=== PATIENT | female | born 1980 | race Caucasian/White ===

== ENCOUNTER 2016-04-05 06:03 | Emergency (ER) | payer OTHER ==
[~2016-04-05] VITALS: Ht 172.7 cm; Wt 82.0 kg
[~2016-04-05 06:03] MED LIST: ACYCLOVIR400 MG; ACYCLOVIR400 MG PO; BUPROPION HCL75 MG PO; BUSPAR15 MG PO; CLARITIN10 M3 PO; CLEOCIN300 MG PO; CLONIDINE HCL0.1 MG PO; ENDOCET 5-3251 EACH PO; FLEXERIL10 MG PO; FLOVENT 11120 INHALA IH; GABAPENTIN300 MG PO; GEODON20 MG; HYDROXYZINE HCL25 MG PO; INDOCIN25 MG PO; KEFLEX500 MG; LAMICTAL100 MG PO; LANTUS 10100 UNITS/ SC; LIDOCAINE20 MG/1 M5 PO; LISINOPRIL20 MG PO; MACROBID100 MG PO; MEDROL DOSEPAK4 MG PO; METFORMIN HCL500 MG PO; MILK THISTLE500 MG PO; MOTRIN800 MG PO; NAPROSYN500 MG PO; NORCO 5/3251 TABLET PO; NOVOLOG 10100 UNITS/ IV; NOVOLOG 10100 UNITS/ SC; OMEPRAZOLE40 M1 PO; OXAYDO5 MG PO; PAXIL CR37.5 MG PO; PAXIL30 MG PO; PERCOCET 5/31 TABLET PO; PRENATAL TABLE1 EACH PO; PROAIR HFA8.5 GM; PROAIR HFA8.5 GM IH; PROMETHAZINE HC25 M1 PO; RANITIDINE HCL150 M1 PO; RANITIDINE HCL300 MG PO; ROPINIROLE HCL0.5 MG PO; SIMVASTATIN20 MG PO; TRAMADOL HCL50 MG PO; VALIUM10 MG PO; VALIUM5 MG PO; ZANTAC150 MG PO; ZOCOR20 MG PO; ZOFRAN ODT4 MG PO; ZOLOFT50 MG PO; ZOVIRAX400 MG
[2016-04-05] MEDS ORDERED: NORCO 5/3251 TABLET PO (08:51)
[2016-04-05] MEDS ORDERED: PREDNISONE50 MG PO (08:51)
[2016-04-05] MEDS ORDERED: FLEXERIL5 MG PO (08:51)
[2016-04-05 09:05] VITALS: BP 00/00
== END 2016-04-05 09:05 | disposition home or self-care (01) ==
LOC: EME 06:03
DX: M54.2 Cervicalgia (principal); G89.29 Other chronic pain; M79.602 Pain in left arm; Z91.81 History of falling; M50.323 Other cervical disc degeneration at C6-C7 level; M50.322 Other cervical disc degeneration at C5-C6 level; J45.909 Unspecified asthma, uncomplicated; E11.9 Type 2 diabetes mellitus without complications; Z79.4 Long term (current) use of insulin; Z86.14 Personal history of Methicillin resistant Staphylococcus aureus infection; F17.200 Nicotine dependence, unspecified, uncomplicated
CPT/HCPCS: 72040; 99281; 99283

== ENCOUNTER 2016-04-17 18:01 | Emergency (ER) | payer OTHER ==
[~2016-04-17] VITALS: Ht 170.2 cm; Wt 81.8 kg
[~2016-04-17 18:01] MED LIST changes: +FLEXERIL5 MG PO; +PREDNISONE50 MG PO
[2016-04-17 19:53] LABS: POINT-OF-CARE METER ID UU13113778
[2016-04-17 19:59] LABS: HEMATOCRIT 37.4 % (36.0-46.0); MCH 29.7 PG (29.0-34.0); MCV 84.8 FL (83-99); MEAN PLAT.VOLUME 10.3 uM^3 (9.5-12.4); PLATELET COUNT 469 K/uL (156-360); RBC DIS.WIDTH-CV 12.3 % (11.8-14.6); RBC DIS.WIDTH-SD 37.3 % (39-53); RED BLOOD COUNT 4.41 M/uL (3.80-5.20); WHITE BLOOD COUNT 12.7 K/uL (4.1-10.2)
[2016-04-17 20:01] LABS: ADD MIUA? YES; BILIRUBIN NEGATIVE; BLOOD TRACE; COLOR YELLOW ((YELLOW)); GLUCOSE (STRIP) >=1000; KETONES NEGATIVE; LEUKOCYTES NEGATIVE; NITRITE NEGATIVE; PROTEIN (STRIP) NEGATIVE; SPECIFIC GRAVITY 1.039 (1.000-1.030); UROBILINOGEN 0.2 MG/DL (0.2-1.0)
[2016-04-17 20:08] LABS: CHLORIDE 105 mEq/L (99-109); POTASSIUM 4.2 mEq/L (3.7-5.4); SODIUM 137 mEq/L (136-147)
[2016-04-17 20:09] LABS: GLUCOSE 369 mg/dL (70-99)
[2016-04-17 20:11] LABS: ANION GAP 11 MEQ/L (2-14)
[2016-04-17 20:13] LABS: GFR ESTIMATE (CALCULATED) > 59 mL/min/
[2016-04-17 20:14] LABS: AMPHETAMINE NEGATIVE (500 ng/mL); BARBITURATES NEGATIVE (200 ng/mL); BENZODIAZEPINES NEGATIVE (150 ng/mL); COCAINE NEGATIVE (150 ng/mL); INTERNAL CONTROLS VALID? YES; METHADONE NEGATIVE (200 ng/mL); METHAMPHETAMINE NEGATIVE (500 ng/mL); OPIATES (MORPHINE) NEGATIVE (100 ng/mL); OXYCODONE NEGATIVE (100 ng/mL); PHENCYCLIDINE NEGATIVE (25 ng/mL); PROPOXYPHENE NEGATIVE (300 ng/mL); THC CANNABINOIDS NEGATIVE (50 ng/mL); TRICYCLIC ANTIDEPRESSANTS NEGATIVE (300 ng/mL); UREA NITROGEN (BUN) 16 mg/dL (9-23)
[2016-04-17 20:29] LABS: RED BLOOD CELLS RARE /HPF (0-5)
[2016-04-17 20:30] LABS: BACTERIA RARE; CASTS NONE SEEN /LPF; CRYSTALS PRESENT; EPITHELIAL CELLS 1+; MUCUS TRACE; UCUL ADDED? NO; URIC ACID CRYSTALS 2+; WHITE BLOOD CELLS RARE /HPF (0-5)
[2016-04-17] MEDS ORDERED: LISINOPRIL20 MG PO (20:46)
[2016-04-17] MEDS ORDERED: METFORMIN HCL500 MG PO (20:47)
[2016-04-17] MEDS ORDERED: BACLOFEN10 MG PO (20:47)
[2016-04-17] MEDS ORDERED: SKELAXIN800 MG PO (21:16)
[2016-04-17 21:42] VITALS: BP 114/82
[2016-04-17 22:05] LABS: POINT-OF-CARE METER ID UU13113747
== END 2016-04-17 21:55 | disposition home or self-care (01) ==
LOC: EME 18:01
PROVIDERS: Physician Assistant
DX: M54.5 Low back pain (principal); G89.29 Other chronic pain; E11.9 Type 2 diabetes mellitus without complications; Z79.4 Long term (current) use of insulin; J45.909 Unspecified asthma, uncomplicated; E78.5 Hyperlipidemia, unspecified; I10 Essential (primary) hypertension; K21.9 Gastro-esophageal reflux disease without esophagitis; B19.20 Unspecified viral hepatitis C without hepatic coma; Z86.14 Personal history of Methicillin resistant Staphylococcus aureus infection; F17.200 Nicotine dependence, unspecified, uncomplicated
CPT/HCPCS: 80048; 81003; 82009; 82948; 85027; 99281; 99285; J3010; J3360; J7030

== ENCOUNTER 2016-04-19 21:37 | Emergency (ER) | payer OTHER ==
[~2016-04-19] VITALS: Ht 170.2 cm; Wt 81.2 kg
[~2016-04-19 21:37] MED LIST changes: +BACLOFEN10 MG PO; +SKELAXIN800 MG PO
[2016-04-19] MEDS ORDERED: MEDROL DOSEPAK4 MG PO (23:17)
[2016-04-19] MEDS ORDERED: PERCOCET 5/31 TABLET PO (23:17)
[2016-04-20 00:58] VITALS: BP 150/92
== END 2016-04-20 00:59 | disposition home or self-care (01) ==
LOC: EME 21:37
DX: M54.5 Low back pain (principal); W18.2XXA Fall in (into) shower or empty bathtub, initial encounter; Y92.002 Bathroom of unspecified non-institutional (private) residence as the place of occurrence of the external cause; E11.9 Type 2 diabetes mellitus without complications; J45.909 Unspecified asthma, uncomplicated; F17.200 Nicotine dependence, unspecified, uncomplicated
CPT/HCPCS: 72070; 72100; 99281; 99284; J1170; J7512

== ENCOUNTER 2016-07-06 08:44 | Day surgery (SDC) | payer OTHER ==
[~2016-07-06] VITALS: Ht 172.7 cm; Wt 82.5 kg
[~2016-07-06 08:44] MED LIST changes: +TYLENOL EXTRA500 MG PO
[2016-07-06 09:18] VITALS: BP 112/76
[2016-07-06 09:50] LABS: POINT-OF-CARE METER ID UU14174212; POINT-OF-CARE USER ID AHSRSCSLC11
[2016-07-06 10:49] LABS: METH RESISTANT S AUREUS PCR POSITIVE (NEGATIVE)
[2016-07-06 10:57] LABS: PROBE CHECK PASS
[2016-07-06 15:25] VITALS: BP 128/80
[2016-07-06 16:25] VITALS: BP 120/82
== END 2016-07-06 16:35 | disposition home or self-care (01) ==
LOC: SDC 08:44
PROVIDERS: Neurological Surgery; Neuromusculoskeletal Medicine, Sports Medicine
PROC: 0RG20J0 Fusion of 2 or more Cervical Vertebral Joints with Synthetic Substitute, Anterior Approach, Anterior Column, Open Approach (ICD-10-PCS; principal; 2016-07-06)
DX: M47.12 Other spondylosis with myelopathy, cervical region (principal); M48.02 Spinal stenosis, cervical region; M50.322 Other cervical disc degeneration at C5-C6 level; M50.323 Other cervical disc degeneration at C6-C7 level; E11.40 Type 2 diabetes mellitus with diabetic neuropathy, unspecified; Z79.4 Long term (current) use of insulin; Z86.14 Personal history of Methicillin resistant Staphylococcus aureus infection; J45.909 Unspecified asthma, uncomplicated; F17.200 Nicotine dependence, unspecified, uncomplicated; Z82.49 Family history of ischemic heart disease and other diseases of the circulatory system; Z83.3 Family history of diabetes mellitus; Z83.49 Family history of other endocrine, nutritional and metabolic diseases; Z82.5 Family history of asthma and other chronic lower respiratory diseases
CPT/HCPCS: 72020; 76000; 82948; 87641; 94640; C1713; J0330; J0690; J1100; J1170; J2250; J2405; J2710; J3010

== ENCOUNTER 2016-09-22 17:52 | Emergency (ER) | payer OTHER ==
[~2016-09-22] VITALS: Ht 170.2 cm; Wt 80.9 kg
[2016-09-22 20:36] LABS: ADD MIUA? YES; BILIRUBIN NEGATIVE; BLOOD MODERATE; COLOR YELLOW ((YELLOW)); GLUCOSE (STRIP) 150; KETONES NEGATIVE; LEUKOCYTES TRACE; NITRITE NEGATIVE; PROTEIN (STRIP) NEGATIVE; SPECIFIC GRAVITY 1.009 (1.000-1.030); UROBILINOGEN 0.2 MG/DL (0.2-1.0)
[2016-09-22 20:38] LABS: INTERNAL CONTROL VALID? YES
[2016-09-22 20:48] LABS: BACTERIA RARE /HPF; EPITHELIAL CELLS 3+ /HPF; HYALINE CASTS 0-5 /LPF; MUCUS TRACE /LPF; RED BLOOD CELLS 0-5 /HPF (0-5); WHITE BLOOD CELLS 0-5 /HPF (0-5)
[2016-09-22] MEDS ORDERED: FLEXERIL10 MG PO (21:11)
[2016-09-22] MEDS ORDERED: MEDROL DOSEPAK4 MG PO (21:11)
[2016-09-22 21:23] VITALS: BP 144/91
== END 2016-09-22 22:11 | disposition home or self-care (01) ==
LOC: EME 17:52
PROVIDERS: Nurse Practitioner Family
DX: M54.31 Sciatica, right side (principal); G89.29 Other chronic pain; M54.2 Cervicalgia; E78.5 Hyperlipidemia, unspecified; E11.9 Type 2 diabetes mellitus without complications; I10 Essential (primary) hypertension; J45.909 Unspecified asthma, uncomplicated; F32.9 Major depressive disorder, single episode, unspecified; K21.9 Gastro-esophageal reflux disease without esophagitis; Z88.2 Allergy status to sulfonamides; Z79.84 Long term (current) use of oral hypoglycemic drugs; Z79.899 Other long term (current) drug therapy; F17.200 Nicotine dependence, unspecified, uncomplicated
CPT/HCPCS: 81003; 84703; 99281; 99284; J1885; J7512

== ENCOUNTER 2017-02-05 23:43 | Inpatient (IN) | payer OTHER ==
[~2017-02-05] VITALS: Ht 170.2 cm; Wt 94.5 kg
[2017-02-06 00:12] LABS: HEMATOCRIT 34.2 % (36.0-46.0); MCH 29.7 PG (29.0-34.0); MCHC 34.2 G/DL (30.0-36.0); MCV 86.8 FL (83-99); MEAN PLAT.VOLUME 10.5 uM^3 (9.5-12.4); PLATELET COUNT 295 K/uL (156-360); RBC DIS.WIDTH-CV 13.2 % (11.8-14.6); RBC DIS.WIDTH-SD 41.8 % (39-53); RED BLOOD COUNT 3.94 M/uL (3.80-5.20); WHITE BLOOD COUNT 18.3 K/uL (4.1-10.2)
[2017-02-06 00:19] LABS: CHLORIDE 102 mEq/L (99-109); POTASSIUM 3.8 mEq/L (3.7-5.4); SODIUM 134 mEq/L (136-147)
[2017-02-06 00:20] LABS: ADD MIUA? YES; BILIRUBIN NEGATIVE; BLOOD NEGATIVE; COLOR YELLOW ((YELLOW)); GLUCOSE (STRIP) 150; KETONES 5; LEUKOCYTES LARGE; NITRITE NEGATIVE; PROTEIN (STRIP) 100; SPECIFIC GRAVITY 1.018 (1.000-1.030); UROBILINOGEN 0.2 MG/DL (0.2-1.0)
[2017-02-06 00:22] LABS: GLUCOSE 246 mg/dL (70-99)
[2017-02-06 00:23] LABS: ANION GAP 13 MEQ/L (2-14)
[2017-02-06 00:24] LABS: TOTAL BILIRUBIN 0.2 mg/dL (0.0-1.0)
[2017-02-06 00:25] LABS: ALKALINE PHOSPHATASE 130 IU/L (3-129); GFR ESTIMATE (CALCULATED) > 59 mL/min/
[2017-02-06 00:25] LABS: BACTERIA RARE /HPF; EPITHELIAL CELLS 4+ /HPF; MUCUS TRACE /LPF; RED BLOOD CELLS 0-5 /HPF (0-5); UCUL ADDED? YES; WHITE BLOOD CELLS 15-20 /HPF (0-5)
[2017-02-06 00:26] LABS: UREA NITROGEN (BUN) 19 mg/dL (9-23)
[2017-02-06 00:29] LABS: LIPASE 90 U/L (1.0-51.0)
[2017-02-06 00:35] LABS: QUANTITATIVE HCG < 4.0 MIU/ML
[2017-02-06 03:33] VITALS: BP 108/59
[2017-02-06 06:24] LABS: POINT-OF-CARE METER ID UU14314084
[2017-02-06 07:42] VITALS: BP 113/56
[2017-02-06 07:48] LABS: EOSINOPHIL (%) 2.9 % (0-5); EOSINOPHIL COUNT 0.3 K/uL (0-0.3); HEMATOCRIT 30.6 % (36.0-46.0); IMMATURE GRANULOCYTE COUNT 0.1 K/uL; INSTRUMENT ABS NEUTROPHIL CT 7.1 K/uL; LYMPHOCYTE COUNT 1.9 K/uL (1.0-2.8); MCH 28.8 PG (29.0-34.0); MCHC 32.7 G/DL (30.0-36.0); MCV 88.2 FL (83-99); MEAN PLAT.VOLUME 10.4 uM^3 (9.5-12.4); MONOCYTE (%) 9.9 % (3-12); NEUTROPHIL (%) 67.9 % (45-76); NEUTROPHIL COUNT 7.1 K/uL (1.8-6.4); PLATELET COUNT 241 K/uL (156-360); RBC DIS.WIDTH-CV 13.2 % (11.8-14.6); RBC DIS.WIDTH-SD 42.8 % (39-53); RED BLOOD COUNT 3.47 M/uL (3.80-5.20); WHITE BLOOD COUNT 10.5 K/uL (4.1-10.2)
[2017-02-06 08:19] LABS: ALKALINE PHOSPHATASE 102 IU/L (3-129); ANION GAP 7 MEQ/L (2-14); CHLORIDE 104 MEQ/L (99-109); GFR ESTIMATE (CALCULATED) > 59 mL/min/; GLUCOSE 391 mg/dL (70-99); POTASSIUM 4.3 MEQ/L (3.7-5.4); SAMPLE HEMOLYSIS CHECK 0; SAMPLE ICTERIC CHECK 0; SAMPLE LIPEMIA CHECK 0; SODIUM 135 MEQ/L (136-147); TOTAL BILIRUBIN 0.2 MG/DL (0.0-1.0); UREA NITROGEN (BUN) 20 mg/dL (9-23)
[2017-02-06 11:08] VITALS: BP 122/76
[2017-02-06 11:22] LABS: POINT-OF-CARE METER ID UU14162508
[2017-02-06 15:41] VITALS: BP 116/69
[2017-02-06 15:53] LABS: POINT-OF-CARE METER ID UU14162508
[2017-02-06 19:42] VITALS: BP 174/81
[2017-02-06 21:34] LABS: POINT-OF-CARE METER ID UU14314084
[2017-02-06 23:18] VITALS: BP 125/70
[2017-02-07 03:25] VITALS: BP 126/84
[2017-02-07 06:25] LABS: POINT-OF-CARE METER ID UU14162508
[2017-02-07 07:45] VITALS: BP 149/77
[2017-02-07 08:42] LABS: POINT-OF-CARE METER ID UU14162508
[2017-02-07 09:12] LABS: HEMATOCRIT 33.3 % (36.0-46.0); MCH 28.3 PG (29.0-34.0); MCHC 31.8 G/DL (30.0-36.0); MEAN PLAT.VOLUME 10.2 uM^3 (9.5-12.4); PLATELET COUNT 293 K/uL (156-360); RBC DIS.WIDTH-CV 13.2 % (11.8-14.6); RBC DIS.WIDTH-SD 43.1 % (39-53); RED BLOOD COUNT 3.74 M/uL (3.80-5.20); WHITE BLOOD COUNT 8.8 K/uL (4.1-10.2)
[2017-02-07] MEDS ORDERED: CIPRO500 MG PO (09:27)
[2017-02-07 09:37] LABS: ANION GAP 7 MEQ/L (2-14); CHLORIDE 107 MEQ/L (99-109); GFR ESTIMATE (CALCULATED) > 59 mL/min/; POTASSIUM 4.5 MEQ/L (3.7-5.4); SAMPLE HEMOLYSIS CHECK 0; SAMPLE ICTERIC CHECK 0; SAMPLE LIPEMIA CHECK 0; SODIUM 139 MEQ/L (136-147); UREA NITROGEN (BUN) 19 mg/dL (9-23)
[2017-02-07 09:38] LABS: GLUCOSE 111 mg/dL (70-99)
[2017-02-07] MEDS ORDERED: LEVAQUIN750 MG PO (10:25)
== END 2017-02-07 09:59 | disposition home or self-care (01) | DRG 690 ==
LOC: EME 23:43 → EDOF 02-06 02:30 → 2EAST 02-06 02:30 → ENRESERV 02-06 02:32 → 2EAST 02-06 03:21
PROVIDERS: Hospitalist; Internal Medicine
DX: N13.6 Pyonephrosis (principal); G89.29 Other chronic pain; E11.9 Type 2 diabetes mellitus without complications; F11.11 Opioid abuse, in remission; I10 Essential (primary) hypertension; J45.909 Unspecified asthma, uncomplicated; E78.5 Hyperlipidemia, unspecified; K21.9 Gastro-esophageal reflux disease without esophagitis; B19.20 Unspecified viral hepatitis C without hepatic coma; F41.9 Anxiety disorder, unspecified; F31.9 Bipolar disorder, unspecified; F17.210 Nicotine dependence, cigarettes, uncomplicated; Z86.14 Personal history of Methicillin resistant Staphylococcus aureus infection; E66.9 Obesity, unspecified; Z68.32 Body mass index [BMI] 32.0-32.9, adult; Z83.3 Family history of diabetes mellitus; Z98.1 Arthrodesis status; Z98.51 Tubal ligation status
CPT/HCPCS: 74176; 80048; 80053; 80076; 81003; 82948; 83690; 84702; 85025; 85027; 87040; 87077; 87086; 87186; 94640; 99202; 99281; 99285; J0696; J1650; J1815; J1885; J2270; J3010; J7030; J7050